=== PATIENT | male | born 1965 | race Caucasian/White ===

== ENCOUNTER 2016-10-20 16:56 | Emergency (ER) | payer OTHER ==
[2016-10-20 17:50] LABS: Basophils # (A) 0.1 k/uL (0-0.2); Basophils % (A) 1 %; CH 29.7; CHCM 32.6; Eosinophils # (A) 0.7 k/uL (0-0.7); Eosinophils % (A) 8 %; HCT 45.1 % (39.0-53.0); HDW 2.15; HGB 14.6 gm/dL (13.0-17.5); Luc # (Auto) 0.35; Luc % (Auto) 4; Lymphocytes # (A) 3.2 k/uL (1.0-4.8); Lymphocytes % (A) 37 %; MCH 29.7 pg (25.0-35.0); MCHC 32.4 g/dL (31.0-37.0); MCV 91.8 fL (80.0-100.0); Mean Platelet Volume 6.8; Monocytes # (A) 0.5 k/uL (0-1.0); Monocytes % (A) 6 %; Neutrophils # (A) 3.7 k/uL (1.3-7.7); Neutrophils % (A) 44 %; RBC 4.92 m/uL (4.30-5.90); RDW 15.2 % (11.5-15.5); WBC 8.5 k/uL (3.8-10.6); WBC (Perox) 8.11
[2016-10-20 17:58] LABS: Partial Thromboplastin Time 24.2 sec (22.0-30.0); Prothrombin Time 9.9 sec (9.0-12.0)
[2016-10-20 17:59] LABS: ALT 36 U/L (21-72); AST 29 U/L (17-59); Alkaline Phosphatase 99 U/L (38-126); Anion Gap 17 mmol/L; Blood Urea Nitrogen 18 mg/dL (9-20); Calcium 9.1 mg/dL (8.4-10.2); Carbon Dioxide 18 mmol/L (22-30); Chloride 112 mmol/L (98-107); Glucose 93 mg/dL (74-99); Magnesium 2.5 mg/dL (1.6-2.3); Non-African American GFR(MDRD) >60 (>60 ml/min/1.73 sqM); Potassium 4.9 mmol/L (3.5-5.1); Sodium 147 mmol/L (137-145); Total Bilirubin 0.3 mg/dL (0.2-1.3); Total Protein 7.2 g/dL (6.3-8.2)
[2016-10-20 18:09] LABS: Alcohol 254 mg/dL
[2016-10-20] MEDS ORDERED: SODIUM CHLORIDE 0.9% 1,000 ML IV ONE (18:20)
--- NOTE | 2016-10-20 18:27 | ED ---
General Adult HPI - General Chief complaint: Neuro Symptoms/Deficit Stated complaint: Numbness in Arm Time Seen by Provider: 10/20/16 17:12 Source: patient, family, RN notes reviewed Mode of arrival: ambulatory Limitations: no limitations - History of Present Illness Initial comments: 51-year-old male with history of alcohol abuse presents with left hand weakness. Patient's symptoms have been present for approximately 3 days. He does report a chronic history of neck pain but denies any new injury. Patient is right-handed. He denies chest pain, denies headache, denies nausea vomiting or diarrhea. Patient states he did drink heavily on Sunday and may have slept with his left arm over the back of a chair. Denies headache. Denies any numbness, tingling, or neurological complaints in the lower extremities. - Related Data Home Medications Medication Instructions Recorded Confirmed Aspirin 325 mg PO DAILY 10/20/16 10/20/16 Allergies Allergy/AdvReac Type Severity Reaction Status Date / Time No Known Allergies Allergy Verified 10/20/16 17:51 Review of Systems ROS Statement: Those systems with pertinent positive or pertinent negative responses have been documented in the HPI. ROS Other: All systems not noted in ROS Statement are negative. Past Medical History Past Medical History: No Reported History History of Any Multi-Drug Resistant Organisms: None Reported Past Surgical History: Appendectomy Past Psychological History: No Psychological Hx Reported Smoking Status: Current every day smoker Past Alcohol Use History: Daily Past Drug Use History: None Reported General Exam Limitations: no limitations General appearance: alert, appears intoxicated Head exam: Present: atraumatic, normocephalic Eye exam: Present: normal appearance, PERRL ENT exam: Present: normal exam, mucous membranes moist Neck exam: Present: normal inspection, tenderness, full ROM Respiratory exam: Present: normal lung sounds bilaterally. Absent: respiratory distress Cardiovascular Exam: Present: regular rate, normal rhythm GI/Abdominal exam: Present: soft. Absent: distended, tenderness, guarding Extremities exam: Present: normal capillary refill, other (Left wrist drop, inability to extend digits 3, 4 and 5). Absent: pedal edema Neurological exam: Present: alert, oriented X3, CN II-XII intact, motor sensory deficit (Inability to extend the left wrist, and left third, 4, and fifth digits ) Psychiatric exam: Present: normal affect, normal mood Skin exam: Present: warm, dry Course Vital Signs 10/20/16 10/20/16 10/20/16 16:59 18:03 19:35 Temperature 97.9 F 97.4 F L Pulse Rate 89 75 87 Respiratory 18 18 16 Rate Blood Pressure 113/77 116/73 127/88 O2 Sat by Pulse 98 96 100 Oximetry EKG Findings - EKG Comments: EKG Findings:: EKG shows normal sinus rhythm, with a ventricular rate 87, CT interval 162, QRS duration 82, QTC is 423, there is no ST segment elevation or depression Procedures - Orthopedic Splinting/Casting Injury #1 Side: left Upper Extremity Injury Location: wrist Upper Extremity Immobilizer: wrist splint Additional Comments: Splint placed for wristdrop, secondary to radial nerve palsy Medical Decision Making - Medical Decision Making 51-year-old male presenting with 3 day history of left hand weakness. On examination patient is unable to extend at the wrist, unable to extend his third fourth or fifth digit. Patient does drink daily and admits to heavy alcohol consumption on Sunday night. He believes he may have slept with his left arm over the back of a chair. History physical exam consistent with left radial nerve palsy. Given the history of chronic neck pain, and concern for possible CVA computed tomography scan of the head and neck is obtained. These are negative for any acute findings. Laboratory studies are significant only for her serum alcohol of 250. Patient is accompanied by his mother who will be driving the patient home. No other electrolyte abnormalities noted. Patient is placed in a wrist splint with extension of the wrist to prevent contraction. Patient is given neurology follow-up. He is instructed to wear the splint until cleared by neurology. He is aware that this may take several months to heal. Diagnosis: Radial nerve palsy on the left - Lab Data Result diagrams: 10/20/16 17:39 10/20/16 17:39 Lab Results 10/20/16 10/20/16 10/20/16 Range/Units 17:39 17:39 17:39 WBC 8.5 (3.8-10.6) k/uL RBC 4.92 (4.30-5.90) m/uL Hgb 14.6 (13.0-17.5) gm/dL Hct 45.1 (39.0-53.0) % MCV 91.8 (80.0-100.0) fL MCH 29.7 (25.0-35.0) pg MCHC 32.4 (31.0-37.0) g/dL RDW 15.2 (11.5-15.5) % Plt Count 286 (150-450) k/uL Neutrophils % 44 % Lymphocytes % 37 % Monocytes % 6 % Eosinophils % 8 % Basophils % 1 % Neutrophils # 3.7 (1.3-7.7) k/uL Lymphocytes # 3.2 (1.0-4.8) k/uL Monocytes # 0.5 (0-1.0) k/uL Eosinophils # 0.7 (0-0.7) k/uL Basophils # 0.1 (0-0.2) k/uL PT 9.9 (9.0-12.0) sec INR 1.0 (<1.2) APTT 24.2 (22.0-30.0) sec Sodium 147 H (137-145) mmol/L Potassium 4.9 (3.5-5.1) mmol/L Chloride 112 H (98-107) mmol/L Carbon Dioxide 18 L (22-30) mmol/L Anion Gap 17 mmol/L BUN 18 (9-20) mg/dL Creatinine 0.80 (0.66-1.25) mg/dL Est GFR (MDRD) Af Amer >60 (>60 ml/min/1.73 sqM) Est GFR (MDRD) Non-Af >60 (>60 ml/min/1.73 sqM) Glucose 93 (74-99) mg/dL Calcium 9.1 (8.4-10.2) mg/dL Magnesium 2.5 H (1.6-2.3) mg/dL Total Bilirubin 0.3 (0.2-1.3) mg/dL AST 29 (17-59) U/L ALT 36 (21-72) U/L Alkaline Phosphatase 99 (38-126) U/L Total Protein 7.2 (6.3-8.2) g/dL Albumin 4.7 (3.5-5.0) g/dL Serum Alcohol 254 mg/dL Disposition 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
--- NOTE | 2016-10-20 18:33 | CT ---
EXAMINATION TYPE: CT brain samy chu DATE OF EXAM: 10/20/2016 COMPARISON: NONE HISTORY: Numbness in arms CT DLP: 1860 mGycm Automated exposure control for dose reduction was used. TECHNIQUE: CT scan of the head and cervical spine are performed without contrast. FINDINGS: The ventricles have normal size. There is no mass effect nor midline shift. There is no s ign of intracranial hemorrhage. The calvarium is intact. There is straightening of the cervical spine with mild kyphotic curvature. There is narrowing and spu rring at C5-6 C6-7 disc spaces. Facet joints are intact. Skull base is intact. There is no evidence f or fracture. IMPRESSION: Normal CT scan of the brain. Mild spondylotic changes in the cervical spine. No fracture.
[2016-10-20 19:41] VITALS: BP 127/88; PULSE 87; RESP 16; TEMP 97.4
--- NOTE | 2016-10-25 02:42 | CDI ---
Dear Neftaly Ga MD: Please do addendum type of splint. Thank you, Silviano Westbrook, [employer]. If you have any questions, please contact Mechanical Manufacturing Technician at [phone]. [facility]
== END 2016-10-20 19:58 | disposition home or self-care (01) ==
LOC: EC 16:56
DX: G56.32 Lesion of radial nerve, left upper limb (principal); M54.2 Cervicalgia; G89.29 Other chronic pain; F17.200 Nicotine dependence, unspecified, uncomplicated; Z79.82 Long term (current) use of aspirin
CPT/HCPCS: 29125; 36415; 70450; 72125; 80053; 80320; 83735; 85025; 85610; 85730; 93005; 96360; 99284

== ENCOUNTER 2018-05-11 04:42 | Emergency (ER) | payer OTHER ==
[2018-05-11 05:50] LABS: Basophils # (A) 0.1 k/uL (0-0.2); Basophils % (A) 1 %; Eosinophils # (A) 0.3 k/uL (0-0.7); Eosinophils % (A) 2 %; HCT 44.9 % (39.0-53.0); HGB 14.2 gm/dL (13.0-17.5); Lymphocytes # (A) 3.3 k/uL (1.0-4.8); Lymphocytes % (A) 28 %; MCH 28.2 pg (25.0-35.0); MCHC 31.6 g/dL (31.0-37.0); MCV 89.3 fL (80.0-100.0); Mean Platelet Volume 6.7; Monocytes # (A) 0.8 k/uL (0-1.0); Monocytes % (A) 7 %; Neutrophils % (A) 60 %; Platelet Count 377 k/uL (150-450); RBC 5.02 m/uL (4.30-5.90); RDW 13.3 % (11.5-15.5); WBC 11.7 k/uL (3.8-10.6)
[2018-05-11 06:10] LABS: Alcohol <10 mg/dL; Anion Gap 10 mmol/L; Blood Urea Nitrogen 14 mg/dL (9-20); Calcium 9.6 mg/dL (8.4-10.2); Carbon Dioxide 28 mmol/L (22-30); Chloride 97 mmol/L (98-107); Glucose 177 mg/dL (74-99); Potassium 4.3 mmol/L (3.5-5.1); Sodium 135 mmol/L (137-145)
[2018-05-11] MEDS ORDERED: LORazepam 2 MG/ML INJ IV STA ×2 (06:11→07:11)
[2018-05-11] MEDS ORDERED: SODIUM CHLORIDE 0.9% 500 ML 500 ML IV STA (06:11)
--- NOTE | 2018-05-11 06:13 | CT ---
EXAM: CT Head Without Intravenous Contrast CLINICAL HISTORY: Trauma. TECHNIQUE: Axial computed tomography images of the head/brain without intravenous contrast. CTDI is 45.2 mGy and DLP is 1044 mGy-cm. This CT exam was performed using one or more of the following dose reduction techniques: automated exposure control, adjustment of the mA and/or kV according to patient size, and/or use of iterative reconstruction technique. COMPARISON: No relevant prior studies available. FINDINGS: Brain: There is no evidence of acute transcortical infarct or acute intracranial hemorrhage. No significant white matter disease. Ventricles: Unremarkable. No ventriculomegaly. Bones/joints: Unremarkable. No acute fracture. Soft tissues: Scalp soft tissue swelling/small hematoma overlies the right frontal calvarium. Left periorbital soft tissue swelling also seen. Sinuses: Unremarkable as visualized. No acute sinusitis. Mastoid air cells: Mild partial opacification of the right mastoid air cells. IMPRESSION: 1. No acute intracranial pathology. 2. Scalp soft tissue swelling/small hematoma overlies the right frontal calvarium. Left periorbital soft tissue swelling also seen. 3. Mild partial opacification of the right mastoid air cells. Correlate clinically for mastoiditis. EXAM: CT Cervical Spine Without Intravenous Contrast CLINICAL HISTORY: Trauma. TECHNIQUE: Axial computed tomography images of the cervical spine without intravenous contrast. CTDI is 8.6 mGy and DLP is 277.4 mGy-cm. This CT exam was performed using one or more of the following dose reduction techniques: automated exposure control, adjustment of the mA and/or kV according to patient size, and/or use of iterative reconstruction technique. COMPARISON: No relevant prior studies available. FINDINGS: Limitations: Patient positioning limits evaluation. Vertebrae: No evidence of acute fracture or traumatic malalignment. Mild cervical spondylosis with varying degrees of central canal and foramina stenoses, most notable at C5-C6. Reversal the normal cervical lordosis, which may represent muscle spasm versus positioning. Discs/spinal canal/neural foramina: See above. Soft tissues: No evidence of prevertebral soft tissue swelling. IMPRESSION: 1. No evidence of acute fracture or traumatic malalignment. 2. Reversal the normal cervical lordosis, which may represent muscle spasm versus positioning. 3. Mild cervical spondylosis with varying degrees of central canal and foramina stenoses, most notable at C5-C6. MRI of the cervical spine at be obtained for further evaluation, if clinically indicated. [employer] 05/11/18 06:02 Call Doctor Regarding Other, called Dr. Boogie on 05/11 06:01 (-05:00)
[2018-05-11] MEDS ORDERED: cloNIDine HCL 0.2 MG TAB PO STA (07:11)
--- NOTE | 2018-05-11 07:36 | ED ---
Fall HPI - General Source: patient, EMS Mode of arrival: EMS - History of Present Illness MD Complaint: fall Onset/Timin -: hour(s) Fall From: standing Fall Witnessed: no Place Fall Occurred: home Loss of Consciousness: none Prolonged Down Time?: no Symptoms Prior to Fall: none Context: alcohol use Associated Symptoms: headache <AidanPadilla [email or web address] - Last Filed: 05/11/18 07:26> <Jacinto Wright - Last Filed: 05/11/18 09:41> - General Chief Complaint: Fall Stated Complaint: FALL Time Seen by Provider: 05/11/18 05:03 - Related Data Home Medications Medication Instructions Recorded Confirmed Acetaminophen Tab [Tylenol Tab] 650 mg PO Q4H PRN 05/11/18 05/11/18 Allergies Allergy/AdvReac Type Severity Reaction Status Date / Time bee venom protein (honey bee) AdvReac Swelling Verified 05/11/18 08:18 Review of Systems ROS Other: All systems not noted in ROS Statement are negative. Constitutional: Denies: fever, chills Eyes: Denies: eye pain, vision change ENT: Denies: ear pain, hearing loss, epistaxis Respiratory: Denies: cough, dyspnea Cardiovascular: Denies: chest pain, palpitations, syncope Gastrointestinal: Denies: abdominal pain, vomiting Musculoskeletal: Denies: back pain Neurological: Reports: headache. Denies: weakness, numbness, paresthesias Hematological/Lymphatic: Denies: easy bleeding <ChuyitaPadilla - Last Filed: 05/11/18 07:26> ROS Other: All systems not noted in ROS Statement are negative. <Jacinto Wright - Last Filed: 05/11/18 09:41> ROS Statement: Those systems with pertinent positive or pertinent negative responses have been documented in the HPI. Past Medical History Past Medical History: No Reported History History of Any Multi-Drug Resistant Organisms: None Reported Past Surgical History: Appendectomy Past Psychological History: No Psychological Hx Reported Smoking Status: Current every day smoker Past Alcohol Use History: Daily Past Drug Use History: None Reported, Marijuana <ChuyitaPadilla - Last Filed: 05/11/18 07:26> General Exam Limitations: altered mental status General appearance: alert, in no apparent distress Head exam: Present: normocephalic Eye exam: Present: normal appearance. Absent: scleral icterus, conjunctival injection Neck exam: Present: normal inspection, full ROM. Absent: tenderness, meningismus Respiratory exam: Present: normal lung sounds bilaterally. Absent: respiratory distress, wheezes, rales, rhonchi, stridor Cardiovascular Exam: Present: regular rate, normal rhythm, normal heart sounds. Absent: systolic murmur, diastolic murmur, rubs, gallop GI/Abdominal exam: Present: soft. Absent: distended, tenderness, guarding, rebound Extremities exam: Present: normal inspection, normal capillary refill. Absent: pedal edema, calf tenderness Back exam: Present: normal inspection. Absent: CVA tenderness (R), CVA tenderness (L), vertebral tenderness Neurological exam: Present: alert, oriented X3, CN II-XII intact. Absent: motor sensory deficit Skin exam: Present: warm, dry, intact, normal color. Absent: rash <Padilla Boogie - Last Filed: 05/11/18 07:26> Vital Signs 05/11/18 05/11/18 05/11/18 04:45 04:50 04:59 Temperature 98.2 F Pulse Rate 97 89 Respiratory 12 16 Rate Blood Pressure 190/131 176/119 O2 Sat by Pulse 95 93 L 93 L Oximetry 05/11/18 05/11/18 05/11/18 05:10 05:30 05:40 Temperature Pulse Rate 94 90 Respiratory 20 18 Rate Blood Pressure 176/119 160/111 160/111 O2 Sat by Pulse Oximetry 05/11/18 05/11/18 05/11/18 05:50 06:06 06:47 Temperature Pulse Rate 93 89 Respiratory 16 16 Rate Blood Pressure 160/111 177/123 158/121 O2 Sat by Pulse 96 97 Oximetry 05/11/18 05/11/18 05/11/18 07:00 07:13 07:15 Temperature Pulse Rate 91 90 90 Respiratory 18 18 16 Rate Blood Pressure 158/121 146/114 146/114 O2 Sat by Pulse 97 98 Oximetry 05/11/18 05/11/18 05/11/18 07:30 07:45 08:00 Temperature Pulse Rate 88 84 89 Respiratory 19 18 16 Rate Blood Pressure 164/114 172/121 153/111 O2 Sat by Pulse 96 95 Oximetry 05/11/18 05/11/18 05/11/18 08:06 08:15 08:30 Temperature Pulse Rate 89 86 85 Respiratory 18 18 16 Rate Blood Pressure 151/107 151/107 151/104 O2 Sat by Pulse 96 94 L 94 L Oximetry 05/11/18 05/11/18 05/11/18 08:45 09:00 09:15 Temperature Pulse Rate 87 87 83 Respiratory 17 17 17 Rate Blood Pressure 147/97 139/92 137/92 O2 Sat by Pulse 94 L 95 95 Oximetry Medical Decision Making - Lab Data Result diagrams: 05/11/18 04:45 05/11/18 04:45 <Padilla Boogie - Last Filed: 05/11/18 07:26> - Lab Data Result diagrams: 05/11/18 04:45 05/11/18 04:45 <Jacinto Wright - Last Filed: 05/11/18 09:41> - Medical Decision Making This patient was signed out to me by Dr. Kirkpatrick. Patient was awaiting a repeat blood pressure. Catapres was already given to the patient. Patient's CAT scan showed a hematoma and questionable mastoiditis however the patient had no tenderness over the mastoids. Patient's blood pressure came down after Catapres patient felt better and wanted to be discharged home. (Jacinto Wright) - Lab Data Lab Results 05/11/18 05/11/18 05/11/18 Range/Units 04:45 04:45 07:29 WBC 11.7 H (3.8-10.6) k/uL RBC 5.02 (4.30-5.90) m/uL Hgb 14.2 (13.0-17.5) gm/dL Hct 44.9 (39.0-53.0) % MCV 89.3 (80.0-100.0) fL MCH 28.2 (25.0-35.0) pg MCHC 31.6 (31.0-37.0) g/dL RDW 13.3 (11.5-15.5) % Plt Count 377 (150-450) k/uL Neutrophils % 60 % Lymphocytes % 28 % Monocytes % 7 % Eosinophils % 2 % Basophils % 1 % Neutrophils # 7.0 (1.3-7.7) k/uL Lymphocytes # 3.3 (1.0-4.8) k/uL Monocytes # 0.8 (0-1.0) k/uL Eosinophils # 0.3 (0-0.7) k/uL Basophils # 0.1 (0-0.2) k/uL Sodium 135 L (137-145) mmol/L Potassium 4.3 (3.5-5.1) mmol/L Chloride 97 L (98-107) mmol/L Carbon Dioxide 28 (22-30) mmol/L Anion Gap 10 mmol/L BUN 14 (9-20) mg/dL Creatinine 0.77 (0.66-1.25) mg/dL Est GFR (CKD-EPI)AfAm >90 (>60 ml/min/1.73 sqM) Est GFR (CKD-EPI)NonAf >90 (>60 ml/min/1.73 sqM) Glucose 177 H (74-99) mg/dL Calcium 9.6 (8.4-10.2) mg/dL Urine Color Yellow Urine Appearance Clear (Clear) Urine pH 6.5 (5.0-8.0) Ur Specific [place] 1.010 (1.001-1.035) Urine Protein 1+ H (Negative) Urine Glucose (UA) Negative (Negative) Urine Ketones Negative (Negative) Urine Blood Negative (Negative) Urine Nitrite Negative (Negative) Urine Bilirubin Negative (Negative) Urine Urobilinogen <2.0 (<2.0) mg/dL Ur Leukocyte Esterase Negative (Negative) Urine RBC 3 (0-5) /hpf Urine WBC <1 (0-5) /hpf Hyaline Casts 1 (0-2) /lpf Urine Mucus Rare H (None) /hpf Serum Alcohol <10 mg/dL Disposition <Padilla Boogie - Last Filed: 05/11/18 07:26> Is patient prescribed a controlled substance at d/c from ED?: No Time of Disposition: 09:27 <Jacinto Wright - Last Filed: 05/11/18 09:41> Clinical Impression: Fall, History of alcoholism, Hypertension, Head injury Disposition: HOME SELF-CARE Instructions (If sedation given, give patient instructions): Abuse of Alcohol ( DC), Hypertension (ED) Referrals: None,Stated [Primary Care Provider] - 1-2 days
[2018-05-11 08:46] LABS: Appearance,Urine Clear (Clear); Bilirubin,Urine Negative (Negative); Blood,Urine Negative (Negative); Color,Urine Yellow; Glucose,Urine (UA) Negative (Negative); Hyaline Casts,Urine 1 /lpf (0-2); Ketones,Urine Negative (Negative); Leukocyte Esterase,Urine Negative (Negative); Mucus,Urine Rare /hpf; Nitrite,Urine Negative (Negative); PH, Urine 6.5 (5.0-8.0); Protein,Urine 1+ (Negative); RBC,Urine 3 /hpf (0-5); Urobilinogen,Urine <2.0 mg/dL (<2.0); WBC,Urine <1 /hpf (0-5)
[2018-05-11 09:22] VITALS: BP 137/92; PULSE 83
[2018-05-11 09:47] LABS: Basophils # (A) 0.1 k/uL (0-0.2); Basophils % (A) 1 %; Eosinophils # (A) 0.1 k/uL (0-0.7); Eosinophils % (A) 1 %; HCT 42.4 % (39.0-53.0); HGB 13.7 gm/dL (13.0-17.5); Lymphocytes # (A) 1.9 k/uL (1.0-4.8); Lymphocytes % (A) 18 %; MCH 28.9 pg (25.0-35.0); MCHC 32.3 g/dL (31.0-37.0); MCV 89.6 fL (80.0-100.0); Mean Platelet Volume 6.1; Monocytes # (A) 0.7 k/uL (0-1.0); Monocytes % (A) 7 %; Neutrophils # (A) 7.8 k/uL (1.3-7.7); Neutrophils % (A) 73 %; Platelet Count 368 k/uL (150-450); RBC 4.73 m/uL (4.30-5.90); RDW 13.4 % (11.5-15.5); WBC 10.6 k/uL (3.8-10.6)
[2018-05-11 09:58] LABS: Anion Gap 6 mmol/L; Blood Urea Nitrogen 13 mg/dL (9-20); Calcium 9.2 mg/dL (8.4-10.2); Carbon Dioxide 29 mmol/L (22-30); Chloride 99 mmol/L (98-107); Glucose 101 mg/dL (74-99); Magnesium 1.9 mg/dL (1.6-2.3); Potassium 4.5 mmol/L (3.5-5.1); Sodium 134 mmol/L (137-145)
[2018-05-11 10:06] VITALS: RESP 18; TEMP 98.6
== END 2018-05-11 10:06 | disposition home or self-care (01) ==
LOC: EC 04:42
DX: S00.83XA Contusion of other part of head, initial encounter (principal); I10 Essential (primary) hypertension; F17.200 Nicotine dependence, unspecified, uncomplicated; Z86.59 Personal history of other mental and behavioral disorders; Z91.030 Bee allergy status; Z53.8 Procedure and treatment not carried out for other reasons; W19.XXXA Unspecified fall, initial encounter; Y92.009 Unspecified place in unspecified non-institutional (private) residence as the place of occurrence of the external cause
CPT/HCPCS: 36415; 80048; 83735; 85025; 81001; 80320; 72125; 70450; 99284; 96374; 96361; J2060

== ENCOUNTER 2019-11-13 21:32 | Emergency (ER) | payer OTHER ==
[2019-11-13 21:44] VITALS: RESP 18
[2019-11-13] MEDS ORDERED: WATER FOR IRRIG, STERILE 1,000 ML BTL IRRIGATION ONE (22:02)
[2019-11-13] MEDS ORDERED: LIDOCAINE 1% INJ 10MG/ML (20 ML MDV) SQ STA (22:40)
--- NOTE | 2019-11-13 22:56 | XR ---
EXAMINATION TYPE: XR tibia fibula RT DATE OF EXAM: 11/13/2019 COMPARISON: NONE HISTORY: Laceration TECHNIQUE: 3 views FINDINGS: Tibia and fibula appear intact. I see no fracture nor dislocation. Knee joint and ankle raz nt appear intact. There is soft tissue laceration deformity of the lateral aspect of the proximal fib lawrence. I see no definite foreign body. IMPRESSION: Laceration deformity. No fracture seen.
[2019-11-13] MEDS ORDERED: HYDROcodone/APAP 5-325MG 1 EACH TAB PO STA (22:58)
--- NOTE | 2019-11-13 23:35 | ED ---
General Adult HPI - General Chief complaint: Wound/Laceration Stated complaint: Leg Laceration, ETOH Time Seen by Provider: 11/13/19 21:55 Source: patient, EMS, RN notes reviewed, old records reviewed Mode of arrival: EMS - History of Present Illness Initial comments: 54-year-old male patient presents to ED for evaluation of laceration to right calf region. 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 There is a piece of sheet metal that was exposed which walked into creating a large laceration to the right lateral calf region. Denies any other injuries. Reports tetanus was updated last year. Denies any other complaints. Pt does report he has been drinking alcohol today. Denies any injury to head or neck. Systemic: Pt denies fatigue, fever/chills, rash. Pt denies weakness, night sweats, weight loss. Neuro: Pt denies headache, visual disturbances, syncope or pre-syncope. HEENT: Pt denies ocular discharge or irritation, otalgia, rhinorrhea, pharyngitis or notable lymphadenopathy. Cardiopulmonary: Pt denies chest pain, SOB, heart palpitations, dyspnea on exertion. Abdominal/GI: Pt denies abdominal pain, n/v/d. : Pt denies dysuria, burning w/ urination, frequency/urgency. Denies new onset urinary or bowel incontinence. MSK: Pt denies myalgia, loss of strength or function in extremities. Neuro: Pt denies new onset weakness, paresthesias. - Related Data Previous Rx's Medication Instructions Recorded Cephalexin [Keflex] 500 mg PO Q6HR 5 Days #20 cap 11/14/19 Allergies Allergy/AdvReac Type Severity Reaction Status Date / Time bee venom protein (honey bee) AdvReac Swelling Verified 11/13/19 22:34 Review of Systems ROS Statement: Those systems with pertinent positive or pertinent negative responses have been documented in the HPI. ROS Other: All systems not noted in ROS Statement are negative. Past Medical History Past Medical History: No Reported History History of Any Multi-Drug Resistant Organisms: None Reported Past Surgical History: Appendectomy Past Psychological History: No Psychological Hx Reported Smoking Status: Current every day smoker Past Alcohol Use History: Daily Past Drug Use History: None Reported General Exam - General Exam Comments Initial Comments: Constitutional: NAD, AOX3, Pt has pleasant affect. HEENT: NC/AT, trachea midline, neck supple, no lymphadenopathy. External ears appear normal, without discharge. Mucous membranes moist. Eyes PERRLA, EOM intact. There is no scleral icterus. No pallor noted. Cardiopulmonary: RRR, no murmurs, rubs or gallops, no JVD noted. Lungs CTAB in anterior and posterior chandler. No peripheral edema. Abdominal exam: Abdomen soft and non-distended. Abdomen non-tender to palpation in all 4 quadrants. Bowel sounds active in LLQ. No hepatosplenomegaly. No ecchymosis Neuro: CN II-XII grossly intact. MSK: 3.5 inch laceration lateral aspect right lower extremity. Muscle belly exposed, No significant muscle laceration, no evisceration. No foreign body or osseous process. Full active range of motion sensation intact, hyperflexion dorsiflexion strength intact and equal. Neurovascularly intact. Vigorously irrigated. Approximated with 14 sutures. Course Vital Signs 11/13/19 11/14/19 21:35 01:04 Temperature 98.3 F 98.6 F Pulse Rate 82 89 Respiratory 18 18 Rate Blood Pressure 134/104 108/83 O2 Sat by Pulse 96 98 Oximetry Procedures - Laceration Laceration #1 Consent Obtained: verbal consent Indication: laceration Site: lower extremity Size (cm): 8 (3.5 inch) Description: linear Depth: simple, single layer Anesthetic Used: lidocaine 1% Anesthesia Technique: local infiltration Amount (mls): 8 Pre-repair: wound explored, irrigated extensively, deep structures intact Type of Sutures: nylon Size of Sutures: 4-0 Number of Sutures: 14 Technique: simple, interrupted Patient Tolerated Procedure: well, no complications Medical Decision Making - Medical Decision Making 54-year-old male patient went to ED for laceration caused a piece of sheet meta vital signs stable, afebrile. physical exam displayed 3.5 inch laceration. Muscle belly exposed no significant damage to it. Well approximated. plain film negative for fracture or foreign body. Pt will be discharged with outpatient follow-up and return precautions. Case discussed and pt seen by Dr. Ware. Disposition Clinical Impression: Laceration Disposition: HOME SELF-CARE Condition: Stable Instructions (If sedation given, give patient instructions): Care For Your Stitches (ED), Laceration (ED) Additional Instructions: I recommend no strenuous activity until this is healed. Monitor closely for signs of infection follow up with primary care provider for wound check 1-2 days. Return to ER if any worsening symptoms. Please return for suture removal: Extremities: 7-10 days Please monitor for signs and symptoms of infection including: redness, warmth, drainage, discharge. Please return to ED if these signs or symptoms occur, new signs or symptoms develop or if condition worsens in anyway. Prescriptions: Cephalexin [Keflex] 500 mg PO Q6HR 5 Days #20 cap Is patient prescribed a controlled substance at d/c from ED?: No Referrals: Florencia Boggs MD [Primary Care Provider] - 1-2 days
[2019-11-14] MEDS ORDERED: CEPHALEXIN 500MG STARTER PACK 4 CAP BTL PO STA (00:40)
[2019-11-14 01:05] VITALS: BP 108/83; PULSE 89; TEMP 98.6
== END 2019-11-14 01:15 | disposition home or self-care (01) ==
LOC: EC 21:32
DX: S81.811A Laceration without foreign body, right lower leg, initial encounter (principal); F17.200 Nicotine dependence, unspecified, uncomplicated; Z91.030 Bee allergy status; W45.8XXA Other foreign body or object entering through skin, initial encounter; Y92.89 Other specified places as the place of occurrence of the external cause; Y93.H2 Activity, gardening and landscaping
CPT/HCPCS: 73590; 99284; 12004; 96365; J0690; J2001

== ENCOUNTER 2020-08-23 17:44 | Emergency (ER) | payer OTHER ==
[2020-08-23 17:50] VITALS: RESP 18; TEMP 98.2
[2020-08-23] MEDS ORDERED: LIDOCAINE 1% INJ 10MG/ML (20 ML MDV) SQ ONE (18:04)
[2020-08-23] MEDS ORDERED: MORPHINE SULFATE 4 MG/ML SYRINGE IVP STA (18:04)
--- NOTE | 2020-08-23 18:07 | ED ---
Wound/Laceration HPI - General Chief Complaint: Wound/Laceration Stated Complaint: finger lac Time Seen by Provider: 08/23/20 17:59 Source: patient, RN notes reviewed Mode of arrival: ambulatory Limitations: no limitations - History of Present Illness Initial Comments: Patient is a 55-year-old male that presents to emergency department with a left thumb laceration from a skill saw accident. He notes that he was cutting a board without clubbing abdominal like he noted he should in the saw kicked back and caught his left thumb. He notes that he can move the thumb no problem and has full range of motion but did cut it pretty well. He notes that he is up-to-date on his tetanus and got one last year as he cut his leg. He had no other complaints or issues at this time. She did have full sensation and feeling in his left thumb along with full range of motion. He did note that he was in 7 out of 10 pain and would like some pain medication. He denied any chest pain short of breath headache nausea vomiting diarrhea constipation fever fatigue chills. - Related Data Previous Rx's Medication Instructions Recorded Cephalexin [Keflex] 500 mg PO Q6HR 5 Days #20 cap 11/14/19 Cephalexin [Keflex] 500 mg PO Q6HR #40 cap 08/23/20 Allergies Allergy/AdvReac Type Severity Reaction Status Date / Time bee venom protein (honey bee) AdvReac Swelling Verified 08/23/20 17:50 Review of Systems ROS Statement: Those systems with pertinent positive or pertinent negative responses have been documented in the HPI. ROS Other: All systems not noted in ROS Statement are negative. Past Medical History Past Medical History: No Reported History History of Any Multi-Drug Resistant Organisms: None Reported Past Surgical History: Appendectomy Past Psychological History: No Psychological Hx Reported Smoking Status: Current every day smoker Past Alcohol Use History: Occasional Past Drug Use History: None Reported General Exam Limitations: no limitations General appearance: alert, in no apparent distress Head exam: Present: atraumatic, normocephalic, normal inspection Eye exam: Present: normal appearance, PERRL, EOMI. Absent: scleral icterus, conjunctival injection, periorbital swelling Neck exam: Present: normal inspection. Absent: tenderness, meningismus, lymphadenopathy Respiratory exam: Present: normal lung sounds bilaterally. Absent: respiratory distress, wheezes, rales, rhonchi, stridor Cardiovascular Exam: Present: regular rate, normal rhythm, normal heart sounds. Absent: systolic murmur, diastolic murmur, rubs, gallop, clicks GI/Abdominal exam: Present: soft, normal bowel sounds. Absent: distended, tenderness, guarding, rebound, rigid Left Hand Wrist exam: Present: full ROM, laceration (The entire length of the left thumb on the lateral dorsal aspect.), nail avulsion. Absent: normal inspection Neurological exam: Present: alert, oriented X3, CN II-XII intact Psychiatric exam: Present: normal affect, normal mood Skin exam: Present: warm, dry, intact, normal color. Absent: rash Course Vital Signs 08/23/20 17:45 Temperature 98.2 F Pulse Rate 75 Respiratory 18 Rate Blood Pressure 178/96 O2 Sat by Pulse 100 Oximetry Procedures - Laceration Laceration #1 Consent Obtained: verbal consent Indication: laceration Site: hand (Left thumb) Size (cm): 10 Description: irregular Depth: simple, single layer Anesthetic Used: lidocaine 1% Anesthesia Technique: local infiltration Amount (mls): 8 Pre-repair: irrigated extensively Type of Sutures: nylon Size of Sutures: 5-0 Number of Sutures: 1 Technique: running Complications: bleeding Patient Tolerated Procedure: well, no complications Medical Decision Making - Medical Decision Making 55-year-old male with left thumb laceration from a skill saw accident. X-ray of the left thumb, 4 mg of morphine, lidocaine ordered. 1 tablet of Keflex 500 mg ordered. Patient tolerated suturing well. And Biaxin to pharmacy. Case discussed with Dr. Wright, patient will follow-up with orthopedist outpatient in the next 1-2 days. - Radiology Data Radiology results: report reviewed, image reviewed Thumb x-ray: Fracture of the distal fibula to left thumb with displacement and no foreign body seen. There is a transverse fracture to the base of the distal phalanx of the left thumb. There is 6 mm posterior displacement of the distal fragment. There is no evidence of foreign body. Disposition Clinical Impression: Laceration, Open fracture of left thumb Disposition: HOME SELF-CARE Condition: Stable Instructions (If sedation given, give patient instructions): Laceration (ED), Care For Your Stitches (ED) Additional Instructions: Please return to the Emergency Department if symptoms worsen or any other concerns. Follow-up with orthopedist tomorrow. Can take Tylenol Motrin for pain. Keep dressing on to prevent bleeding and debris from getting into wound. Antibiotics sent to pharmacy. Is patient prescribed a controlled substance at d/c from ED?: No Referrals: Bismark Emerson [Primary Care Provider] - 1-2 days Sha Tabor DO [Doctor of Osteopathic Medicine] - 1-2 days Time of Disposition: 19:08
[2020-08-23] MEDS ORDERED: MORPHINE SULFATE 4 MG/ML SYRINGE IM STA (18:13)
[2020-08-23] MEDS ORDERED: AMOXIC-POT CLAV 875-125MG 1 EACH TAB PO STA (18:23)
[2020-08-23] MEDS ORDERED: CEPHALEXIN 500 MG CAP PO STA (18:24)
--- NOTE | 2020-08-23 19:01 | XR ---
EXAMINATION TYPE: XR finger LT DATE OF EXAM: 08/23/2020 COMPARISON: NONE HISTORY: Laceration with saw TECHNIQUE: 3 views FINDINGS: There is a transverse fracture through the base of the distal phalanx of the left thumb. Th ere is 6 mm posterior displacement of the distal fragment. There is no evidence of foreign body. IMPRESSION: Fracture of the distal phalanx of the left thumb with displacement. No foreign body seen.
[2020-08-23] MEDS ORDERED: ACET/COD 300 MG/30 MG STARTER PACK 6 TAB BTL PO STA (19:08)
[2020-08-23 19:31] VITALS: BP 139/53; PULSE 70
== END 2020-08-23 19:27 | disposition home or self-care (01) ==
LOC: EC 17:44
DX: S62.522B Displaced fracture of distal phalanx of left thumb, initial encounter for open fracture (principal); F17.200 Nicotine dependence, unspecified, uncomplicated; W31.2XXA Contact with powered woodworking and forming machines, initial encounter; Y93.89 Activity, other specified; Z91.030 Bee allergy status
CPT/HCPCS: 99282 ×2; 12004 ×2; 96372; 96374; 73140; J2270; J2001

== ENCOUNTER 2020-08-27 10:38 | Day surgery (SDC) | payer OTHER ==
[2020-08-26 13:02] VITALS: BMI 22.7
[~2020-08-27 10:38] MED LIST: DEXAMETHASONE SOD PHOSPHATE 4 MG/ML 1 ML VIAL IV ONE; HYDROmorphone 0.5 MG/0.5 ML SYRINGE IVP PRN; LACTATED RINGERS 1,000 ML IV SCH; LIDOCAINE 1% (10MG/ML) FOR IV START INTRADERMA PRN; MIDAZOLAM 2 MG/2 ML VIAL IV PRN; ONDANSETRON 4 MG/2 ML VIAL IVP ONE
[2020-08-27] MEDS ORDERED: KETAMINE 10 MG/ML 20 ML VIAL ONE (12:05)
[2020-08-27] MEDS ORDERED: PROPOFOL 10 MG/ML 20 ML VIAL IV ONE (12:05)
[2020-08-27] MEDS ORDERED: MIDAZOLAM 2 MG/2 ML VIAL ONE (12:05)
[2020-08-27] MEDS ORDERED: ePHEDrine SULFATE/0.9% NACL/PF 50 MG/5 ML SYRINGE IV ONE (12:05)
[2020-08-27] MEDS ORDERED: fentaNYL (PF) 50 MCG/ML 2 ML AMP ONE (12:05)
[2020-08-27] MEDS ORDERED: LIDOCAINE 1% INJ 10MG/ML (20 ML MDV) ONE (12:05)
[2020-08-27] MEDS ORDERED: LACTATED RINGERS 1,000 ML IV ONE (12:39)
[2020-08-27] MEDS ORDERED: BUPIVACAINE (PF) 0.25% 30 ML VIAL SQ ONE (12:58)
[2020-08-27 13:28] VITALS: TEMP 97.5
[2020-08-27 14:18] VITALS: RESP 20
[2020-08-27] MEDS ORDERED: HYDROcodone/APAP 7.5-325MG 1 EACH TAB ONE (14:22)
[2020-08-27] MEDS ORDERED: HYDROcodone/APAP 7.5-325MG 1 EACH TAB PO ONE (14:23)
[2020-08-27 14:29] VITALS: BP 128/81; PULSE 85
--- NOTE | 2020-08-27 16:08 | FL ---
Fluoroscopy HISTORY: Left thumb pin 24 seconds fluoroscopy time supplied to the referring clinician. 2 intraoperative C-arm images docum ent the procedure. See dictated report from surgery.
--- NOTE | 2020-09-02 18:25 | P.OP ---
Date of Procedure: 08/27/20 Procedure(s) Performed: PREOPERATIVE DIAGNOSES: 1. Left hand thumb distal phalanx open grade II fracture from circular saw injury 2. Nail plate total avulsion and nail matrix laceration POSTOPERATIVE DIAGNOSES: 1. Left hand thumb distal phalanx open grade II fracture from circular saw injury with 4 cm laceration 2. Nail plate total avulsion and nail germinal matrix laceration PROCEDURES PERFORMED: 1. Left thumb distal phalanx open grade II fracture open reduction and percutaneous pinning 2. Repair of nail bed germinal matrix 3. Completion of avulsion of nail plate of thumb 4. Repair of simple laceration of thumb, 4 cm single layer 5. 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 The fracture is completely displaced, the nail matrix is disrupted and the nail is at least partially avulsed. I have discussed open reduction of the fracture and pin fixation, along with repair of the nailbed if necessary. This will involve completion of her partial nail plate avulsion. I have explained the details of this surgery thoroughly and also explained the potential risks and complications. These are inclusive of, but not limited to: bleeding, infection, scarring, discomfort, deformity, blood vessel and nerve damage, stiffness, weakness, need for further surgery, failure to relieve symptoms, persistence or worsening of problems, , and other risks. The patient is aware of these risks and agrees to proceed with surgery. The consent form has been signed. PROCEDURE: After consent was obtained, the patient was taken to the operating room and placed in the supine position. General anesthesia was initiated. The limb was prepped and draped in the usual aseptic fashion with Hibiclens prep, and the patient was given IV antibiotics. The tourniquet was not used. Time out was called, confirming patient identity, side, procedure, and administration of antibiotics. Wound was inspected first. The laceration was thoroughly irrigated with normal saline. The large C-arm was used to obtain images of the thumb. The fracture was evaluated and reduced using careful manual manipulation. The reduction was held and a 0.062 k-wire was then inserted using a drill from the tip of the distal phalanx into the distal phalangeal base. Alignment was near anatomic. Final C-arm pictures were taken and saved. Next, the nail plate partial avulsion was completed using iris scissors and a [place] elevator. The nail was completely removed from the underlying matrix without any significant damage to the matrix. The matrix itself had a horizontal disruption across its base which corresponded to the fracture below, directly at the germinal matrix. The underlying surface of the nail matrix was now smooth, as accomplished by the adventist of the normal alignment of the distal phalanx fracture. Using fine absorbable suture, the residual germinal matrix was brought together with several interrupted sutures. Due to the extent of the cicular saw injury directly on this portion of the matrix, there were several areas that were devoid of matrix tissue that could not be reapproximated. The pin was cut just below the skin surface. Laceration of the dorsal aspect of the thumb was repaired using simple sutures of 4-0 nylon suture. The patient's nail plate which had been sterilizing in hibiclens solution, was carefully tucked in underneath the eponychium and sutured into place using 4-0 nylon interrupted sutures. Sterile dressing was applied and the patients hand was placed into a bulky dressing. Patient tolerated the procedure well and taken to recovery room in stable condition. Sponge and needle counts were correct.
== END 2020-08-27 14:53 | disposition home or self-care (01) ==
LOC: OR 10:38
PROVIDERS: ATTEND Orthopaedic Surgery
DX: S62.522B Displaced fracture of distal phalanx of left thumb, initial encounter for open fracture (principal); W29.1XXA Contact with electric knife, initial encounter; Y93.9 Activity, unspecified; F17.210 Nicotine dependence, cigarettes, uncomplicated
CPT/HCPCS: 73140; 26765; 11012; C1713; J2250; J1100; J0690; J2405; J2001; J3010; J2704